=== PATIENT | male | born 1995 | race Caucasian/White ===

== ENCOUNTER 2017-11-14 23:26 | Emergency (ER) | payer SELFPAY ==
[~2017-11-14] VITALS: Ht 167.6 cm; Wt 59.1 kg
[2017-11-15 01:20] VITALS: BP 113/7
== END 2017-11-15 01:57 | disposition home or self-care (01) ==
LOC: EMS 23:27
DX: F12.129 Cannabis abuse with intoxication, unspecified (principal); R00.2 Palpitations
CPT/HCPCS: 93005; 99283